=== PATIENT | male | born 1940 | race Native Hawaiian/Other Pacific Islander ===

== ENCOUNTER → 2018-01-26 | Outpatient (CLI) | payer BC, MEDICARE | LOC: GMAE 13:32 | PROVIDERS: ATTEND Family Medicine | DX: N40.0 Benign prostatic hyperplasia without lower urinary tract symptoms (principal); I10 Essential (primary) hypertension ==

== ENCOUNTER → 2018-08-18 | Outpatient (CLI) | payer BC, MEDICARE | LOC: GMAE 17:25 | PROVIDERS: ATTEND Family Medicine | DX: M79.604 Pain in right leg (principal) ==

== ENCOUNTER → 2018-09-15 | Outpatient (CLI) | payer BC, MEDICARE | LOC: GMAE 14:16 | PROVIDERS: ATTEND Family Medicine | DX: M79.604 Pain in right leg (principal); R20.9 Unspecified disturbances of skin sensation; Z79.899 Other long term (current) drug therapy ==

== ENCOUNTER → 2020-06-05 | Outpatient (CLI) | payer BC, MEDICARE | LOC: GMAE 10:43 | PROVIDERS: ATTEND Family Medicine | DX: Z12.5 Encounter for screening for malignant neoplasm of prostate (principal); R73.01 Impaired fasting glucose; I10 Essential (primary) hypertension; E78.2 Mixed hyperlipidemia ==